=== PATIENT | male | born 1985 | race Caucasian/White ===

== ENCOUNTER 2019-08-25 16:00 | Emergency (ER) | payer OTHER, MEDICARE ==
[~2019-08-25] VITALS: Ht 172.7 cm; Wt 76.7 kg
[2019-08-25] MEDS ORDERED: ONDANSETRON 4 MG TAB.RAPDIS SL ONE (16:30)
--- NOTE | 2019-08-25 16:37 | NUR ---
Patient awake alert non distress to CT patient would like to Call Marlo
[2019-08-25] MEDS: HYDROCODONE/APAP 5/325MG 1 EACH TABLET PO ONE (16:46)
--- NOTE | 2019-08-25 16:52 | NUR ---
Patient Decline [place] @ this time
[2019-08-25] MEDS ORDERED: IBUPROFEN 600 MG TABLET PO ONE (17:03)
[2019-08-25] MEDS: IBUPROFEN 600 MG TABLET PO ONE (17:07)
--- NOTE | 2019-08-25 17:41 | NUR ---
Patient awake alert on the phone talking to his agent ,patient non distress @ this time
--- NOTE | 2019-08-25 19:20 | NUR ---
Patient discharged to home in stable condition. Written and verbal after care instructions given. Patient verbalizes understanding of instruction. Prescriptions explained and received. Patient is ambulatory with a steady gait.
[2019-08-25 19:21] VITALS: BP 121/77
== END 2019-08-25 19:22 | disposition home or self-care (01) ==
LOC: ER 16:00 → EDBD 16:00 → ER 19:22
DX: M54.5 Low back pain (principal); Z88.0 Allergy status to penicillin; V49.59XA Passenger injured in collision with other motor vehicles in traffic accident, initial encounter; Y93.89 Activity, other specified; Y92.488 Other paved roadways as the place of occurrence of the external cause; Y99.8 Other external cause status
CPT/HCPCS: 72074-TC; 72100-TC